=== PATIENT | female | born 1980 | race Caucasian/White ===

== ENCOUNTER → 2022-12-06 07:46 | Outpatient (CLI) | payer OTHER, SELFPAY ==
--- NOTE | 2022-12-06 | DI.US.S_ITS ---
PROCEDURE: US PELVIC COMPLETE INDICATIONS: PAIN TECHNIQUE: Real-time scanning was performed of the pelvic organs, with image documentation. Additional endovaginal scanning was necessary due to incomplete visualization of the adnexal and endometrial structures by transabdominal scanning. COMPARISON: None. FINDINGS: Uterus: Uterus is anteverted and normal in size at 8.7 x 6.4 x 4.9 cm. The myometrium is homogeneous. The endometrium measures 12 mm combined thickness. Ovaries: The right ovary measures 3.6 x 3.1 x 2.2 cm, with a calculated ovarian volume of 13 cc. The left ovary measures 4.8 x 3.2 x 2.8 cm, with a calculated ovarian volume of 23 cc. There is a thick-walled, hemorrhagic cyst containing thin internal septations in the left ovary measuring 3.1 centimeter. Less than 12 follicles can be seen in each ovary. No adnexal masses are seen. Other: No pathologic free abdominal or pelvic fluid. IMPRESSION: Thick-walled, hemorrhagic cyst containing thin internal septations in the left ovary measuring 3.1 centimeter, likely hemorrhagic conversion of the a corpus luteum. Given history of pain, consider follow-up in 6-12 weeks to ensure resolution. We strive to produce accurate, complete, and clear reports of imaging services. To assist us in improving patient care, this report was composed using standard report templates and voice recognition software. Therefore, it may contain abnormal punctuation, insertions and/or omissions. Occasional wrong-word or sound-alike substitutions may occur. Though we review the report and make efforts to correct it, we do recommend that the report be read carefully in proper context to recognize any text inaccuracies. Dictated by: Mariano Gonzales M.D. on 12/06/2022 at 9:22 Approved by: Mariano Gonzales M.D. on 12/06/2022 at 9:29
== END ==
PROVIDERS: PCP Family Medicine; Referring Provider Family Medicine; Visit Provider Family Medicine
DX: N83.202 Unspecified ovarian cyst, left side (principal); R10.2 Pelvic and perineal pain
CPT/HCPCS: 76830; 76856; 93975

== ENCOUNTER → 2023-02-09 12:13 | Outpatient (CLI) | payer OTHER, SELFPAY ==
--- NOTE | 2023-02-09 | DI.US.S_ITS ---
PROCEDURE: US PELVIC COMPLETE INDICATIONS: FOLLOW UP OVARIAN CYST TECHNIQUE: Real-time scanning was performed of the pelvic organs, with image documentation. Additional endovaginal scanning was necessary due to incomplete visualization of the adnexal and endometrial structures by transabdominal scanning. COMPARISON: [facility], US, US PELVIC COMPLETE, 12/06/2022, 8:01. FINDINGS: Uterus: Uterus is anteverted and normal in size at 9.5 x 4.7 x 6.8 cm. The myometrium is homogeneous. The endometrium measures 11.3 mm combined thickness. No significant abnormality can be seen along the endometrial stripe. No abnormal endometrial stripe vascularity can be seen. Ovaries: The right ovary measures 1.9 x 4.4 x 1.7 cm, with a calculated ovarian volume of 7.3 cc. The left ovary measures 3 x 2.3 x 2.8 cm, with a calculated ovarian volume of 9.9 cc. Within the left ovary, there is a minimally complicated septated cyst seen that measures 1.2 x 1.9 x 0.7 cm, which previously measured 3.1 x 2.8 x 2.2 cm. Less than 12 follicles can be seen involving each ovary. No adnexal masses are seen. Other: No pathologic free abdominal or pelvic fluid. IMPRESSION: Resolving complex, septated left ovarian cyst. We strive to produce accurate, complete, and clear reports of imaging services. To assist us in improving patient care, this report was composed using standard report templates and voice recognition software. Therefore, it may contain abnormal punctuation, insertions and/or omissions. Occasional wrong-word or sound-alike substitutions may occur. Though we review the report and make efforts to correct it, we do recommend that the report be read carefully in proper context to recognize any text inaccuracies. Dictated by: Yuri Braxton M.D. on 02/09/2023 at 12:43 Approved by: Yuri Braxton M.D. on 02/09/2023 at 12:44
== END ==
PROVIDERS: PCP Family Medicine; Referring Provider Family Medicine; Visit Provider Family Medicine
DX: N83.202 Unspecified ovarian cyst, left side (principal)
CPT/HCPCS: 76830; 76856; 93975